=== PATIENT | male | born 1995 | race Caucasian/White ===

== ENCOUNTER 2019-11-02 15:41 | Outpatient (CLI) | payer OTHER ==
--- NOTE | 2019-11-03 10:22 | MRI ---
MRI OF THE LEFT SHOULDER WITHOUT CONTRAST: INDICATION: History of a bench press injury and left pectoral pain after the workout. COMPARISON: None. TECHNIQUE: Multiplanar, multisequence MR images were obtained of the left shoulder to evaluate for a left pector nuvia muscular injury. Motion artifact heavily limits detail limiting examination. FINDINGS: There is a full-thickness tear of the pectoralis tendon with retraction on image 36 of series 9 from the sternal and abdominal head component. Portions of the tendon receiving contributions to the clav icular head remain intact. There is prominent muscular edema seen at the musculotendinous junction o f the pectoralis muscle. Visualized shoulder joint demonstrates no overt effusion. 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 There is an os acromiale. There is mild gynecomastia. No enlarged lymph nod es are evident. The remaining shoulder girdle musculature appears within normal limits. IMPRESSION: Findings consistent with a full-thickness, near total tear of the pectoralis muscular tendon with ret raction of the tendon to the level of the musculotendinous junction. Small portion of the pectoralis tendon from the clavicular head remain intact. POS: BH
== END 2019-11-02 15:42 | disposition home or self-care (01) ==
LOC: SCSMRI 15:41
PROVIDERS: ATTEND Orthopaedic Surgery
DX: S29.011A Strain of muscle and tendon of front wall of thorax, initial encounter (principal)

== ENCOUNTER 2019-11-11 05:44 | Outpatient (CLI) | payer OTHER ==
[2019-11-11 18:20] LABS: SARS-CoV-2 MS2 Positive; SARS-CoV-2 N Gene Negative; SARS-CoV-2 S Gene Negative; SARS-CoV-2 orf1ab Negative
== END 2019-11-11 05:45 | disposition home or self-care (01) ==
LOC: LABBT 05:44
PROVIDERS: ATTEND Orthopaedic Surgery
DX: Z01.812 Encounter for preprocedural laboratory examination (principal); Z11.59 Encounter for screening for other viral diseases; S29.011A Strain of muscle and tendon of front wall of thorax, initial encounter
CPT/HCPCS: 87635; U0003

== ENCOUNTER 2019-11-15 08:47 | Day surgery (SDC) | payer OTHER ==
[2019-11-11 09:51] VITALS: BMI 33.7
[2019-11-15] MEDS ORDERED: Fentanyl 100 MCG/2 ML VIAL ONE ×2 (10:02→10:42)
[2019-11-15] MEDS ORDERED: Midazolam HCl 2 mg/2 ml Vial ONE ×2 (10:02→10:42)
[2019-11-15] MEDS ORDERED: Lidocaine 2% Jelly 5 ML TUBE ONE (10:42)
[2019-11-15] MEDS ORDERED: Bupivacaine HCl 0.5%/Epinephrine 1:200,000/PF 30 ml Vial ONE (11:29)
[2019-11-15] MEDS ORDERED: Dexamethasone 20 MG/5 ML VIAL ONE (11:29)
[2019-11-15] MEDS ORDERED: Glycopyrrolate 0.2 MG/ML 5 ML SYRINGE ONE (11:29)
[2019-11-15] MEDS ORDERED: Rocuronium Bromide 10 MG/ML (10ML VIAL) ONE (11:29)
[2019-11-15] MEDS ORDERED: Ondansetron PF 4 MG/2 ML Vial ONE (11:29)
[2019-11-15] MEDS ORDERED: PROPOFOL 200 MG/20 ML VIAL ONE (11:29)
[2019-11-15] MEDS ORDERED: Ketorolac Tromethamine 30 MG/ML VIAL ONE (11:29)
[2019-11-15] MEDS ORDERED: HYDROcodone/Acetaminophen 5/325 mg Tablet ONE (14:17)
--- NOTE | 2019-11-16 08:54 | OP ---
DATE OF PROCEDURE: 11/15/2019 PREOPERATIVE DIAGNOSIS: Left full-thickness pectoralis major sternal head tear near the myotendinous junction. POSTOPERATIVE DIAGNOSIS: Full-thickness partial tear pectoralis major sternal head at the myotendinous junction, clavicular head intact. PROCEDURE PERFORMED: Repair of pectoralis major tendon. EQUIPMENT TECHNICIAN: Trev Calvo MD ANESTHESIOLOGIST: Dr. Parikh. ANESTHESIA: The patient received a general intubation. ESTIMATED BLOOD LOSS: Single shot interscalene block. ESTIMATED BLOOD LOSS: 30 mL. TOURNIQUET TIME: None. ANTIBIOTICS: Ancef 2 g. IMPLANTS: 2 mm FiberTape. COMPLICATIONS: None. INDICATIONS FOR PROCEDURE: Mr. Bone is a 24-year-old male, presents after bench pressing 450 pounds, sustaining a pop in his arm. The patient had at third rep felt a pop. MRI evidence showed what appeared to be a pectoralis major full-thickness tear at myotendinous junction. I discussed with the patient the risks and benefits of pectoralis major repair to include pain, scar, bleeding, infection, damage to vital structures, decreased range of motion and strength, failure of repair, continued pain despite surgical intervention, and vital structures, loss of life or limb. I discussed with the patient that he would not be able to go back to bench pressing at the volume and rate that he did before. He understood the risks and benefits of the procedure and elected to proceed. DESCRIPTION OF PROCEDURE: Time-out was performed. The patient's left upper extremity was confirmed as the operative site based on site, consents, and marking. After time-out, the patient's upper extremity was then prepped and draped in a sterile fashion with chlorhexidine prep and Ioban placed. I made an incision in the deltopectoral interval, came down in between the patient's clavicular head of the pectoralis, which was intact through its course in the vein. I dissected bluntly down following the clavicular head down to the humerus and placed the Hohmann across the humerus to help expose. I was looking for the sternal head coming underneath for its insertional tear, but there was not any tearing superiorly. We then used a retractor to elevate the clavicular head and bluntly dissect. I did not come into a large hematoma consistent with the previous tear, but was able to feel a palpable defect in the sternal head superiorly at the myotendinous junction, but you could see the investing fibers of the sternal head and could feel underneath the sternal head being intact through its course. This was only instead of being a full-thickness tear of the entirety of the sternal head, it was just a partial tear, full-thickness tear at the myotendinous junction. Given this, we had taken an Allis, it was challenging to expose the patient's pectoralis using a Erich to come in, and finally, after blunt dissecting out just that one portion of myotendinous junction, we got hold of it with an Allis, placed a #5 tape through. Given that the majority of the insertion of the pectoralis major at the clavicular head was still intact over the biceps groove and at the myotendinous junction, we did multiple passes through that superior aspect to get what remnant tendon we could, fascia above and below to sandwich the tendon together. We then passed a #5 through the top edge of the sternal head of the pectoralis tendon over the biceps with two passes and sewed together. This did improve the integrity superiorly of the pectoralis. I could not find an obvious palpable defect inferiorly. We did not elect for anchors in the bone, I did not feel that the muscle would be able to extrude that far and likely would tear and felt it would be better to have a soft tissue component bridge with the fascia together. We cut our #2 mm FiberTape suture, saw the repair was otherwise intact. We washed and we closed with 0, 2-0 and skin lindsay. The patient will stay in a sling for 6 weeks, to allow this muscle tendon unit to adhere down for 4 weeks. Concern about the integrity of the repair, did not feel that any allograft or further augmentation. The tear was intact because of the pristine look of his insertion on his humerus. We will see the patient back in 2 weeks to remove lindsay, do passive pendulums and just allow the pectoralis to heal over the next 4 weeks and slowly begin passive range of motion. Job ID: [id number] [facility]
== END 2019-11-15 15:25 | disposition home or self-care (01) ==
LOC: SDC 08:47
PROVIDERS: ATTEND Orthopaedic Surgery
PROC: 0LM30ZZ Reattachment of Right Upper Arm Tendon, Open Approach (ICD-10-PCS; principal; 2019-11-15)
PROC: 3E0T3BZ Introduction of Anesthetic Agent into Peripheral Nerves and Plexi, Percutaneous Approach (ICD-10-PCS; principal; 2019-11-15)
DX: S29.011A Strain of muscle and tendon of front wall of thorax, initial encounter (principal); G89.18 Other acute postprocedural pain
CPT/HCPCS: J0670; J0690; J1100; J1885; J2250; J2405; J2704; J3010